=== PATIENT | female | born 1970 | race Two or more races ===

== ENCOUNTER 2017-10-01 10:33 | Emergency (ER) | payer OTHER ==
[~2017-10-01] VITALS: Ht 162.6 cm; Wt 74.8 kg
--- NOTE | 2017-10-01 10:52 | NUR ---
Dr Brown at the bedside for MSE.
[2017-10-01] MEDS ORDERED: KETOROLAC TROMETHAMINE 30 MG INJ ONE (11:10)
[2017-10-01] MEDS ORDERED: KETOROLAC TROMETHAMINE 30 MG INJ IVP ONE (11:15)
[2017-10-01 11:30] LABS: BASOPHILS % (AUTO) 0.2 % (0.0-2.0); EOSINOPHILS # (AUTO) 0.1 K/uL (0.0-0.7); EOSINOPHILS % (AUTO) 1.5 % (0.0-7.0); HEMATOCRIT 44.7 % (31.2-41.9); HEMOGLOBIN 14.8 g/dL (10.9-14.3); LYMPHOCYTES # (AUTO) 1.7 K/uL (20.0-40.0); LYMPHOCYTES % (AUTO) 20.2 % (20.5-51.5); MEAN CORPUSCULAR HEMOGLOBIN 27.8 uug (24.7-32.8); MEAN CORPUSCULAR HGB CONC 33 g/dL (32.3-35.6); MEAN CORPUSCULAR VOLUME 84.1 fL (75.5-95.3); MONOCYTES # (AUTO) 0.5 K/uL (2.0-10.0); MONOCYTES % (AUTO) 5.8 % (0.0-11.0); NEUTROPHILS % (AUTO) 72.3 % (38.5-71.5); PLATELET COUNT (AUTO) 314 K/uL (179-408); RED BLOOD CELL COUNT(AUTO) 5.31 MIL/uL (3.63-4.92); WHITE BLOOD COUNT (AUTO) 8.2 K/uL (3.8-11.8)
[2017-10-01 11:44] LABS: POTASSIUM 4.6 mmol/L (3.5-5.1)
[2017-10-01 12:00] LABS: BILIRUBIN,DIRECT 0.1 mg/dL (0.0-0.2); BILIRUBIN,TOTAL 0.5 mg/dL (0.2-1.0)
--- NOTE | 2017-10-01 12:00 | NUR ---
Pt signed consent for waiver, placed in the chart.
--- NOTE | 2017-10-01 12:19 | NUR ---
MANUELA Britton spoke to Leticia BAZZI for Dr Gutierrez for infecious consult.
--- NOTE | 2017-10-01 12:56 | NUR ---
Patient discharged to home in stable conditon. Written and verbal after care instructions given. Patient verbalizes understanding of instructions.
[2017-10-01 12:58] VITALS: BP 115/66
== END 2017-10-01 12:59 | disposition home or self-care (01) ==
LOC: ER 10:33
DX: L03.116 Cellulitis of left lower limb (principal); Z88.1 Allergy status to other antibiotic agents
CPT/HCPCS: 36415; 73610; 80048; 80076; 83605; 84484; 84703; 85025; 87040 ×2; 93971; 96374; 99285; A4663; J1885; 70030-TC

== ENCOUNTER 2017-10-04 10:45 | Emergency (ER) | payer OTHER ==
[~2017-10-04] VITALS: Ht 162.6 cm; Wt 74.8 kg
--- NOTE | 2017-10-04 11:09 | NUR ---
Dr Caruso at the bedside for MSE.
[2017-10-04 11:15] VITALS: BP 115/75
--- NOTE | 2017-10-04 11:28 | NUR ---
Patient discharged to home in stable conditon. Written and verbal after care instructions given. Patient verbalizes understanding of instructions.
== END 2017-10-04 11:29 | disposition home or self-care (01) ==
LOC: ER 10:45
DX: L03.116 Cellulitis of left lower limb (principal); Z88.1 Allergy status to other antibiotic agents
CPT/HCPCS: A4663

== ENCOUNTER 2017-10-11 15:10 | Emergency (ER) | payer OTHER ==
[~2017-10-11] VITALS: Ht 162.6 cm; Wt 74.8 kg
[2017-10-11] MEDS ORDERED: CLIN150C16 PO (15:27)
[2017-10-11] MEDS ORDERED: IBUP-1957 PO (15:27)
[2017-10-11 15:46] VITALS: BP 126/79
--- NOTE | 2017-10-11 15:46 | NUR ---
Patient discharged to home in stable conditon. Written and verbal after care instructions given. Patient verbalizes understanding of instructions.
== END 2017-10-11 15:49 | disposition home or self-care (01) ==
LOC: ER 15:12
DX: L03.116 Cellulitis of left lower limb (principal); E03.9 Hypothyroidism, unspecified; Z88.1 Allergy status to other antibiotic agents; Z48.00 Encounter for change or removal of nonsurgical wound dressing; Z79.1 Long term (current) use of non-steroidal anti-inflammatories (NSAID); Z79.2 Long term (current) use of antibiotics
CPT/HCPCS: A4663